=== PATIENT | female | born 1970 | race Caucasian/White ===

== ENCOUNTER 2017-02-14 15:05 | Emergency (ER) | payer OTHER | END 2017-02-14 18:45 | disposition home or self-care (01) | LOC: FER 15:05 | DX: J40 Bronchitis, not specified as acute or chronic (principal); J32.9 Chronic sinusitis, unspecified; I51.9 Heart disease, unspecified; F17.210 Nicotine dependence, cigarettes, uncomplicated; Z88.0 Allergy status to penicillin; Z88.2 Allergy status to sulfonamides; Z79.82 Long term (current) use of aspirin; Z79.899 Other long term (current) drug therapy; Z95.5 Presence of coronary angioplasty implant and graft | CPT/HCPCS: 71020; 87804; 87899; 99284 ==

== ENCOUNTER 2020-11-09 23:51 | Emergency (ER) | payer OTHER ==
[~2020-11-09 23:51] MED LIST: ASPIRIN EC81 MG PO; BRILINTA90 MG PO; COREG 3.125M3.125 MG PO; FLONASE ALLER15.8 ML; MOBIC7.5 MG PO; NEURONTIN400 MG PO; ZYRTEC10 M3 PO
[2020-11-10 00:26] LABS: BASOPHIL 0.5 % (0-2); EOSINOPHIL 3.7 % (0-5); HCT 39.9 % (37.0-47.0); HGB 13.4 g/dl (12.5-16.0); LYMPHOCYTE 28.3 % (15-48); MCH 33.1 pg (25.0-31.0); MCHC 33.6 g/dL (32.0-36.0); MCV 98.5 fL (78.0-100.0); MONOCYTE 5.7 % (0-12); MPV 10.7 fL (6.0-9.5); NEUTROPHIL 61.3 % (41-80); NRBC 0; PLT 244 K/uL (150-400); RBC 4.05 M/uL (4.20-5.40); RDW 14.7 % (11.5-14.0)
[2020-11-10 00:30] LABS: PROTHROMBIN TIME 12.5 SECONDS (11.4-13.6); PTT 29.6 SECONDS (22.2-34.7)
[2020-11-10 00:42] LABS: ALBUMIN 3.6 g/dL (3.4-5.0); BILIRUBIN - TOTAL 0.2 mg/dL (0.2-1.0); BUN/CREAT RATIO (CALC) 9.1 RATIO; CREATININE 1.21 mg/dL (0.51-0.95); GLOBULIN (CALCULATION) 3.8 g/dL; POTASSIUM 3.8 mmol/L (3.5-5.1); TOTAL PROTEIN 7.4 g/dL (6.4-8.2)
== END 2020-11-10 04:57 | disposition home or self-care (01) ==
LOC: FER 23:51
PROVIDERS: Emergency Medicine Emergency Medical Services
DX: R07.89 Other chest pain (principal); I25.2 Old myocardial infarction; F17.210 Nicotine dependence, cigarettes, uncomplicated; Z95.5 Presence of coronary angioplasty implant and graft; Z88.0 Allergy status to penicillin; Z88.2 Allergy status to sulfonamides
CPT/HCPCS: 36415; 71045; 80053; 84484; 85025; 85610; 85730; 93005; J2270; J2405; J7030

== ENCOUNTER 2021-03-20 14:45 | Emergency (ER) | payer OTHER ==
[~2021-03-20] VITALS: Ht 162.6 cm; Wt 59.4 kg
[2021-03-20 15:24] LABS: BASOPHIL 0.7 % (0-2); EOSINOPHIL 2.9 % (0-5); HCT 42.8 % (37.0-47.0); HGB 14.5 g/dl (12.5-16.0); LYMPHOCYTE 27.9 % (15-48); MCH 34.1 pg (25.0-31.0); MCHC 33.9 g/dL (32.0-36.0); MCV 100.7 fL (78.0-100.0); MONOCYTE 7.9 % (0-12); MPV 10.3 fL (6.0-9.5); NEUTROPHIL 60.2 % (41-80); NRBC 0; PLT 237 K/uL (150-400); RBC 4.25 M/uL (4.20-5.40); RDW 13.8 % (11.5-14.0)
[2021-03-20 15:28] LABS: ALBUMIN 3.9 g/dL (3.4-5.0); BILIRUBIN - TOTAL 0.3 mg/dL (0.2-1.0); CREATININE 0.87 mg/dL (0.51-0.95); GLOBULIN (CALCULATION) 3.5 g/dL; POTASSIUM 3.1 mmol/L (3.5-5.1); TOTAL PROTEIN 7.4 g/dL (6.4-8.2)
[2021-03-20 23:59] LABS: BUN/CREAT RATIO (CALC) 9.9 RATIO; CREATININE 0.81 mg/dL (0.51-0.95); POTASSIUM 3.6 mmol/L (3.5-5.1)
== END 2021-03-21 06:30 | disposition other institution (70) ==
LOC: FER 14:45
PROVIDERS: Emergency Medicine
DX: I21.4 Non-ST elevation (NSTEMI) myocardial infarction (principal); F17.210 Nicotine dependence, cigarettes, uncomplicated; G25.81 Restless legs syndrome; Z79.899 Other long term (current) drug therapy; Z20.822 Contact with and (suspected) exposure to COVID-19
CPT/HCPCS: 36415; 71045; 80048; 80053; 83735; 84484; 85025; 85730; 93005; J1644; J2270; J2405; J2550; J7030; U0002